=== PATIENT | female | born 1975 | race Caucasian/White ===

== ENCOUNTER 2024-01-03 08:30 | Outpatient (REF) | payer OTHER, SELFPAY ==
--- NOTE | ~2024-01-03 | US_ITS ---
EXAMINATION: US RETROPERITONEAL COMPLETE (RENAL) CLINICAL INFORMATION: Incontinence. COMPARISON: None available. TECHNIQUE: Real-time imaging of the kidneys and bladder. FINDINGS: RIGHT KIDNEY: 9.8 x 4.4 x 6.1 cm (SAG x AP x TRV). The kidney is normal in size, contour, and echogenicity. Renal cortical thickness is normal. No calculi or focal parenchymal lesions. No hydronephrosis. LEFT KIDNEY: 10.1 x 4.8 x 4.2 cm (SAG x AP x TRV). The kidney is normal in size, contour, and echogenicity. Renal cortical thickness is normal. No calculi or focal parenchymal lesions. No hydronephrosis. BLADDER: Well distended and normal. Bilateral ureteral jets are demonstrated. Prevoid bladder volume is 622 mL. Postvoid bladder volume is 39 mL. US/US retroperitoneal comp IMPRESSION: 1. Normal appearance of the kidneys. 2. Small post void residual.
== END 2024-01-03 08:31 | disposition home or self-care (01) ==
LOC: HO.UMASIMG 08:30
PROVIDERS: Visit Provider Family Medicine
DX: R30.0 Dysuria (principal); K21.9 Gastro-esophageal reflux disease without esophagitis
CPT/HCPCS: 76770